=== PATIENT | male | born 1970 | race Caucasian/White ===

== ENCOUNTER 2020-07-23 10:48 | Inpatient (IN) | payer SELFPAY ==
[2020-07-23] VITALS (45 sets, daily range): BP systolic 98–137; BP diastolic 55–120; PULSE 71–118; RESP 10–27; TEMP 35.6–36.7; O2SAT 90–100
--- NOTE | 2020-07-23 10:45 | RT.EKG_ITS ---
APPROVED REPORT Exam: Resting ECG Patient Location: E HR:85 bpm ECG Measurements Heart Rate 85 AXIS OR 164 P 19 QRSd 88 QRS 4 QT 376 T 24 QTc 448 Conclusion Sinus rhythm...normal P axis, V-rate 60- 99 Low voltage, precordial leads...precordial leads <1.0mV
--- NOTE | 2020-07-23 11:12 | DI.CT_ITS ---
EXAM: CT CHEST PE CTA CLINICAL HISTORY: known PE, got TPA 2 weeks ago, syncope/SOB now TECHNIQUE: COMPARISON: No exams were available for comparison FINDINGS: CT angiography of the chest was performed with intravenous infusion of 100 cc of Omnipaque 350. Imag es obtained through the upper abdomen show unremarkable appearance of visualized portions of liver, s pleen, pancreas, and adrenals. No mediastinal or hilar adenopathy. Lungs are clear. No pleural effusion. There are pulmonary emboli in left pulmonary artery and lobar, segmental, and subsegmental branches o n left. No gross evidence of right ventricular strain. Main pulmonary artery is about 37 millimeter s in diameter, compared to thoracic aorta 35 millimeters in diameter. This may be an acute or chroni c finding. IMPRESSION: Left-sided pulmonary emboli as described above, no gross evidence right heart strain. RADIATION DOSE DELIVERED: Total DLP
--- NOTE | 2020-07-23 11:14 | W.ED.GENAD ---
Discharge Plan Disposition Patient Disposition: [facility] INPATIENT Condition: Good Discharge Details Chief Complaint: SOB Clinical Impression: Pulmonary embolism, Near syncope Primary Care Provider: Unknown,Unknown ED Provider: Pelon Diaz Home Meds and New Rx's Prescriptions: No Action warfarin [Coumadin] 5 mg Tablet 5 mg PO DAILY RF: 0 furosemide [Lasix] 20 mg Tablet 20 mg PO QAM PRNRF: 0 duloxetine 60 mg Capsule,Delayed Release(Dr/Ec) 60 mg PO DAILY RF: 0 Medical Decision Making 59-year-old male with a past medical history of recent nephrectomy secondary to renal cell carcinoma stage I, with subsequent pulmonary embolism requiring TPA 2.5 weeks ago in [place] at his home hospital, who presents today for evaluation of shortness of breath and near syncope. Patient is currently visiting from [place], he states over the last few days he has been doing a notable amount of walking, they while out walking he was doing what he would describe as his normal amounts when he got extremely lightheaded, short of breath, felt like he needed to pass out. He did not syncopized, however contrary to the normal situations he was not able to catch his breath even with rest, and came to the ER for further evaluation. He denies any chest pain, pleuritic chest pain, nausea vomiting diarrhea numbness or tingling. He denies any headache, tearing or ripping sensation in his chest or other complaint otherwise. He does take Coumadin for his PE, and states that he has not missed any doses. He denies any other complaints modifying factors at this time. He denies any fever or chills. He denies any exposure to anyone known with coronavirus. Physical exam demonstrates clear lung sounds, trace pitting edema in the lower extremities, minimal calf tenderness, bedside ultrasound is technically challenging secondary to body habitus, however I was able to get a very decent ventricle visualization, and there does not appear to be any gross evidence of right ventricular strain or distention. Trace pericardial effusion versus fat pad is notable. At this time differential includes mild dehydration causing his symptoms, however obviously out of notable concern is the potential for cardiac strain or worsening clot burden secondary to his PE. I do feel that repeat CTA imaging is indicated to evaluate for change in clot burden, we will gently rehydrate with a small 500 cc bolus as his mucous membranes are notably dry, and he is tachycardic. We will monitor closely and reassess. 12:49 PM Patient's laboratory work-up is returned, no white count, no bandemia or left shift. INR is 2.2, electrolytes and renal function stable. Troponin and proBNP are both within normal limits. On reassessment the patient is stable. CT scan results do demonstrate evidence of multiple left pulmonary emboli, however no evidence of significant heart strain as discussed with virtual radiology, repeat discussion with Dr. Villegas also elicits the response of no evidence of significant heart strain. At this time with the patient's symptomatology, known history of PE, I do feel that he would benefit from continued overnight observation, echo in the morning, and monitoring. We will contact the hospitalist. 1:31 PM Discussed the case with , he agrees with the assessment and plan. The patient will be admitted to [facility] with telemetry. I have extensively reviewed the treatment plan with the patient. I have addressed all patient concerns at this time. I have also discussed the plan with the admitting physician and they agree with the current assessment and plan and have agreed to assume responsibility for the patient. All parties demonstrate verbal understanding and agreement with our assessment and plan at this time. EKG at 11: 00 Sinus rhythm, rate 85, intervals normal, inverted T waves noted in V1, no significant ST elevations or depressions. No evidence of notable cardiac strain. FINDINGS: Pulmonary arteries: Multiple left pulmonary emboli: Filling defect in branch to the left upper lobe and branches to the left lower lobe. Aorta: No aneurysm of the aorta. No dissection of the aorta. Lungs: Unremarkable. No consolidation. No masses. Pleural space: Unremarkable. No pneumothorax. No pleural effusion. Heart: Right ventricular dysfunction . Lymph nodes: Unremarkable. No enlarged lymph nodes. Bones/joints: Unremarkable. No acute fracture. Soft tissues: Unremarkable. IMPRESSION: 1. Multiple left pulmonary emboli: Filling defect in branch to the left upper lobe and branches to the left lower lobe. 2. Right ventricular dysfunction . 3. No aneurysm of the aorta. 4. No dissection of the aorta. Thank you for allowing us to participate in the care of your patient. Dictated and Authenticated by: Liss Alvarez MD 07/23/2020 12:27 PM Eastern Time ([place] & [place]) HPI General Date/Time Provider Initiated Documentation: 07/23/20 10:51. HPI Narrative: 59-year-old male with a past medical history of recent nephrectomy secondary to renal cell carcinoma stage I, with subsequent pulmonary embolism requiring TPA 2.5 weeks ago in [place] at his home hospital, who presents today for evaluation of shortness of breath and near syncope. Patient is currently visiting from [place], he states over the last few days he has been doing a notable amount of walking, they while out walking he was doing what he would describe as his normal amounts when he got extremely lightheaded, short of breath, felt like he needed to pass out. He did not syncopized, however contrary to the normal situations he was not able to catch his breath even with rest, and came to the ER for further evaluation. He denies any chest pain, pleuritic chest pain, nausea vomiting diarrhea numbness or tingling. He denies any headache, tearing or ripping sensation in his chest or other complaint otherwise. He does take Coumadin for his PE, and states that he has not missed any doses. He denies any other complaints modifying factors at this time. He denies any fever or chills. He denies any exposure to anyone known with coronavirus. Related Data Home Medications Medication Instructions Recorded Confirmed duloxetine 60 mg PO DAILY 07/23/20 07/23/20 furosemide [Lasix] 20 mg PO QAM PRN 07/23/20 07/23/20 warfarin [Coumadin] 5 mg PO DAILY 07/23/20 07/23/20 Allergies Allergy/AdvReac Type Severity Reaction Status Date / Time morphine AdvReac Other (See Unverified 07/23/20 11:00 Comment) General Stated Complaint: SOB TAYLOR: 2 Review of Systems All systems reviewed & are unremarkable except as noted in HPI and below PFSH Medical History Anemia Arthritis Bursitis of left shoulder Obesity Pulmonary embolism Renal cell cancer Surgical History H/O bone graft History of appendectomy History of nephrectomy, left Social History Smoking/Tobacco Use Status: Former Tobacco Use Alcohol Intake: current Alcohol Intake frequency: holidays/special occasions only Drug use: Occasionally Substance use type: marijuana Do you feel safe at home: Yes Do you feel safe in your relationship?: Yes Exam Narrative Exam Narrative: 1.Const: Well-nourished, Well-developed, appearing stated age, obese 2.Eyes: PERRL, no conjunctival injection, and symmetrical lids. 3.ENT: Atraumatic external nose and ears. Moist MM. Neck: Symmetric, trachea midline, No thyromegaly. 4.CVS: +S1/S2, No murmurs or gallops. Peripheral pulses 2+ and equal in all extremities. Brisk capillary refill in all extremities. 5.RESP: Unlabored respiratory effort. Clear to auscultation bilaterally. No wheezes rales or rhonchi 6.GI: Soft, Nontender/Nondistended, No hepatosplenomegaly. No guarding or rebound. 7.MSK: Normocephalic/Atraumatic, Extremities w/o deformity or ttp No cyanosis or clubbing, Normal movement of all extremities, no significant pitting edema except for trace pretibial bilaterally. Minimal bilateral calf tenderness. 8.Skin: Warm, Dry. No rashes or lesions. 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 Sensation grossly intact, no focal neurologic deficits. 10.Psych: (AAO) x3. Appropriate mood and affect Course Vital Signs Vital signs: Vital Signs Temperature 36.5 C 07/23/20 10:55 Pulse 118 H 07/23/20 10:55 Respiratory Rate 07/23/20 10:55 Blood Pressure 137/102 H 07/23/20 10:55 Pulse Oximetry 97 07/23/20 10:55 Temperature 36.5 C 07/23/20 10:55 Temperature Source Skin 07/23/20 10:55 Pulse 118 H 07/23/20 10:55 Respiratory Rate 07/23/20 10:55 Respiratory Effort 07/23/20 11:00 Blood Pressure 137/102 H 07/23/20 10:55 Blood Pressure Position Sitting 07/23/20 10:55 Pulse Oximetry 97 07/23/20 10:55 Oxygen Delivery Method Room Air 07/23/20 10:55 Oxygen Flow Rate 0 07/23/20 10:55
[2020-07-23] MEDS: Normal Saline 500 ML IV (11:16)
[2020-07-23 11:21] LABS: Abs Immature Grans 0.03 10^3/uL (0.0-0.06); Absolute Basophil Count 0.06 10^3/uL (0.0-0.2); Absolute Eosinophil Count 0.19 10^3/uL (0.0-0.7); Absolute Lymphocyte Count 2.16 10^3/uL (1.2-3.4); Absolute Neutrophil Count 5.24 10^3/uL (1.2-6.7); Basophils % 0.7; Eosinophils % 2.3; HCT 36.4 % (40.0-50.0); HGB 11.1 g/dL (13.5-17.5); Immature Grans % 0.4; Lymphocytes % 26.4; MCH 24.5 pg (27.0-33.0); MCHC 30.5 % (32.0-36.0); MCV 80.4 fL (80-95); MPV 8.8 fL (8.0-11.0); Monocytes % 6.1; Neutrophils % 64.1; Nucleated RBC 0 %; Platelet Count 217 10^3/uL (130-400); RBC 4.53 10^6/uL (4.36-5.78); RDW 16.6 % (11.8-14.1); RDW-SD 48.4 fL; WBC 8.18 10^3/uL (4.4-10.8)
[2020-07-23 11:39] LABS: INR 2.2 (0.9-1.1); PTT Activated 48.6 sec (21.0-31.4); Prothrombin Time 21.9 sec (9.3-11.0)
[2020-07-23 11:41] LABS: ALT 37 U/L (16-63); AST 21 U/L (15-37); Albumin 3.1 g/dL (3.4-5.0); Alkaline Phosphatase 107 U/L (46-116); Anion Gap 8.5 mmol/L (3-11); BUN 23 mg/dL (7-18); Bilirubin, Total 0.4 mg/dL (0.2-1.0); CO2 24.5 mmol/L (21.0-32.0); CREATININE 1.44 mg/dL (0.70-1.30); Calcium 9.2 mg/dL (8.5-10.1); Chloride 102 mmol/L (98-107); Estimated GFR 51.93 (mL/min/1.73m2); Glucose 92 mg/dL (74-106); NT-proBNP 47 pg/mL (<300); Potassium 4.4 mmol/L (3.5-5.1); Sodium 135 mmol/L (136-145); Total Protein 7.1 g/dL (6.4-8.2)
[2020-07-23 11:42] LABS: Troponin I < 0.05 ng/mL (<0.06)
[2020-07-23] MEDS: Omnipaque 350 MG/ML 100 ML BTL IJ (11:59)
--- NOTE | 2020-07-23 12:02 | NUR.NOTE ---
assumed care of pt. armband removed and new armband with correct birthday applied. pt transported to CT
--- NOTE | 2020-07-23 12:27 | DI.VRAD_ITS ---
Addendum created by Liss Alvarez MD on 07/23/2020 12:32:52 PM EDT: THIS REPORT CONTAINS FINDINGS THAT MAY BE CRITICAL TO PATIENT CARE. The findings were verbally communicated via telephone conference with JASPAL MATHEWS at 12:32 PM EDT on 07/23/2020. The findings were acknowledged and understood. Initial report created on 07/23/2020 12:27:06 PM EDT: PROCEDURE INFORMATION: Exam: CT Angiography Chest With Contrast Exam date and time: 07/23/2020 12:06 PM Age: 49 years old Clinical indication: Shortness of breath TECHNIQUE: Imaging protocol: Computed tomographic angiography of the chest with intravenous contrast. 3D rendering (Not supervised by radiologist): MIP and/or 3D reconstructed images were created by the technologist. Contrast material: [id number]; Contrast volume: 100 ml; Contrast route: INTRAVENOUS (IV); COMPARISON: No relevant prior studies available. FINDINGS: Pulmonary arteries: Multiple left pulmonary emboli: Filling defect in branch to the left upper lobe and branches to the left lower lobe. Aorta: No aneurysm of the aorta. No dissection of the aorta. Lungs: Unremarkable. No consolidation. No masses. Pleural space: Unremarkable. No pneumothorax. No pleural effusion. Heart: Right ventricular dysfunction . Lymph nodes: Unremarkable. No enlarged lymph nodes. Bones/joints: Unremarkable. No acute fracture. Soft tissues: Unremarkable. IMPRESSION: 1. Multiple left pulmonary emboli: Filling defect in branch to the left upper lobe and branches to the left lower lobe. 2. Right ventricular dysfunction . 3. No aneurysm of the aorta. 4. No dissection of the aorta. Dictated and Authenticated by: Liss Alvarez MD. Ordering:SHANTEL Bird MD
--- NOTE | 2020-07-23 13:33 | NUR.NOTE ---
lunch tray ordered for pt. IVF continued
--- NOTE | 2020-07-23 13:47 | HPE_ITS ---
Date of service: 07/23/20 Time of Service: 13:47 Assessment and Plan Assessment and plan (1) Pulmonary embolism: Status: Chronic Assessment and plan: Begin heparin drip while adjusting his warfarin dose to achieve a higher therapeutic INR between 2.5 and 3.0. Will discuss with his providers at [facility] in [facility] what the recommendations for long-term anticoagulation. Patient may need to be discharged on long-term Lovenox therapy rather than continuing on the warfarin. Will obtain an echocardiogram in the morning to evaluate for RV dysfunction. I did a [id number] ultrasound with limited imaging and did not see any signs of overt right heart failure. Qualifiers: Pulmonary embolism type: multiple subsegmental (without acute cor pulmonale) Qualified Code(s): I26.94 - Multiple subsegmental pulmonary emboli without acute cor pulmonale History of Present Illness History of Present Illness Chief Complaint: Dyspnea and dizziness Narrative: 49-year-old male with a past medical history of renal cell carcinoma status post left nephrectomy in January 2020 was recently diagnosed with pulmonary emboli when he was admitted to his local hospital in [facility] for acute dyspnea and near syncope. Patient was treated with Lovenox and bridged over to warfarin. INR reportedly has been therapeutic at 3.0 as of last week. He currently is taking warfarin 5 mg nightly. He is no longer on Lovenox therapy. Patient is here in [place] visiting family members and had been doing well walking up to a mile per day without significant dyspnea or chest discomfort or dizziness. Today while out walking with his sister he got very short of breath and dizzy and felt like he was going to pass out but did not lose consciousness. Evaluation in the emergency department per Dr. Valdivia normal vital signs with no hypotension or tachycardia or hypoxemia. Work-up included a CTA of his chest and routine labs and EKG. CTA of the chest demonstrated pulmonary emboli in the left pulmonary artery and lobar segmental and subsegmental branches on the left but no evidence of right ventricular strain. Main pulmonary artery is dilated at 37 mm compared to his thoracic aortic diameter 35 mm. Filling defects included branches in the left upper lobe and branches the left lower lobe. Virtual radiologist read it as showing right ventricular dysfunction however Dr. Mcgill said there is no evidence for right ventricular strain. His CBC on admission was unremarkable except for a mild anemia with a hemoglobin 11.1 g. Coagulation studies demonstrated an INR of 2.2 and a PTT of 48.6. CMP demonstrated renal insufficiency with a BUN of 23 and a creatinine 1.44 and troponin levels were less than 0.05?2 sets and his proBNP was normal at 47. I discussed the case with Dr. Diaz and recommend that the patient be started on heparin drip per PE protocol until we can get his INR therapeutic. Goal for his INR is between 2.5 and 3.0. I will discuss his case further with his providers in [facility] as the patient may require indefinite treatment with Lovenox rather than going back on warfarin. Because of his size, his BMI is 50.8 kg/m?, he is not a candidate for D.O.A.C. Dr. Diaz seem to think that the patient was given thrombolytic when he first presented with his PE to half weeks ago but when I talked this over with the patient the history is less clear that he received any thrombolytic treatment. Furthermore per discussion with the patient he states he was given the vaccine for COVID-19. As the patient has just recently presented to [place] from [place] COVID 19 swab has been obtained and the patient be treated as a person of interest until the COVID-19 swab comes back negative. He is admitted overnight for systemic heparinization until we can achieve an INR level that is on the high end of therapeutic. Upon review of his medications it sounds like he decreased his warfarin dose to 2.5 mg x 1 night last week when he did not hear back from his primary care provider regarding instructions on dosing after he got an INR of 3.0. Review of Systems All systems reviewed & are unremarkable except as noted in HPI and below Constitutional Constitutional: Denies chills and Denies fever(s) Cardiovascular Cardiovascular: Denies chest pain, Denies chest pain with activity, Denies syncope (dizziness w/ feeling of faintness but no actual syncope), Reports lightheadedness and Reports dyspnea on exertion Respiratory Respiratory: Denies chest congestion, Denies cough, Denies pain on inspiration and Reports dyspnea on exertion Gastrointestinal Gastrointestinal: Denies abdominal pain, Denies melena, Denies hematochezia, Reports heartburn, Denies nausea and Denies vomiting Genitourinary Genitourinary: Reports system reviewed and no additional complaints, except as documented Neurologic Neurologic: Denies syncope (dizziness w/ feeling of faintness but no actual syncope) [facility] Medical History (Updated 07/23/20 @ 18:58 by Buck Naranjo) Anemia Arthritis Bursitis of left shoulder Obesity Pulmonary embolism (~06/2020) Renal cell cancer Surgical History (Updated 07/23/20 @ 18:53 by Buck Naranjo) H/O bone graft to repair right hip fracture History of appendectomy (~2017) History of nephrectomy, left (01/29/20) to treat renal cell carcinoma Social History Smoking/Tobacco Use Status: Former Tobacco Use Alcohol Intake: current Alcohol Intake frequency: holidays/special occasions only Drug use: Occasionally Substance use type: marijuana Do you feel safe at home: Yes Do you feel safe in your relationship?: Yes Meds Home Medications and Allergies Home Medications Medication Instructions Recorded Confirmed Type duloxetine 60 mg PO DAILY 07/23/20 07/23/20 History furosemide [Lasix] 20 mg PO QAM PRN 07/23/20 07/23/20 History warfarin [Coumadin] 5 mg PO DAILY 07/23/20 07/23/20 History Allergies Allergy/AdvReac Type Severity Reaction Status Date / Time morphine AdvReac Other (See Unverified 07/23/20 11:00 Comment) Exam Narrative Exam Narrative: Middle-age male who is morbidly obese. He is alert and oriented person place time circumstance. Skin is nondiaphoretic. He is in no acute respiratory distress. He is able to talk in full paragraphs. HEENT is unremarkable. Neck is supple no JVD normal carotid pulses. Lungs are clear to auscultation. Heart regular rate and rhythm without murmur rub or gallop. Abdomen is obese soft nontender NABS no palpable masses no bruits. Lower extremities with 1+ pitting edema bilaterally. No calf tenderness. Normal pedal pulses Neuro exam grossly intact no focal motor or sensory deficits. No focal cranial nerve abnormalities. Results Labs Result diagrams: 07/23/20 11:08 07/23/20 11:08 Labs: Laboratory Results - last 24 hr 07/23/20 07/23/20 07/23/20 11:08 11:08 11:08 WBC 8.18 RBC 4.53 Hgb 11.1 L Hct 36.4 L MCV 80.4 MCH 24.5 L MCHC 30.5 L RDW 16.6 H Plt Count 217 MPV 8.8 Immature Gran % 0.4 Neutrophils % 64.1 Lymphocytes % 26.4 Monocytes % 6.1 Eosinophils % 2.3 Basophils % 0.7 Nucleated RBC % 0 Absolute Neutrophils 5.24 Absolute Lymphocytes 2.16 Absolute Monocytes 0.50 Absolute Eosinophils 0.19 Absolute Basophils 0.06 PT 21.9 H INR 2.2 H APTT 48.6 H Sodium 135 L Potassium 4.4 Chloride 102 Carbon Dioxide 24.5 Anion Gap 8.5 BUN 23 H Creatinine 1.44 H Estimated GFR/1.73 m2 51.93 Glucose 92 Calcium 9.2 Total Bilirubin 0.4 AST 21 ALT 37 Alkaline Phosphatase 107 Troponin I < 0.05 NT-Pro-B Natriuret Pep 47 Total Protein 7.1 Albumin 3.1 L Last Vital Signs Temp 36.7 C 07/23/20 13:29 Pulse 80 07/23/20 13:29 Resp 14 07/23/20 13:29 BP 114/65 07/23/20 13:29 Pulse Ox 99 07/23/20 13:29 COVID-19 Screening Have you,or household,traveled outside [place] in last 14 days?: Yes Had IN PERSON contact w/suspected or confirmed C-19 person: No
[2020-07-23 15:07] LABS: Troponin I < 0.05 ng/mL (<0.06)
[2020-07-23] MEDS: WARFARIN 5 MG, WARFARIN 2.5 MG 7.5 MG PO (20:53)
[2020-07-23 22:13] LABS: PTT Activated > 155.0 sec (21.0-31.4)
[2020-07-24 05:19] LABS: Abs Immature Grans 0.02 10^3/uL (0.0-0.06); Absolute Basophil Count 0.07 10^3/uL (0.0-0.2); Absolute Eosinophil Count 0.26 10^3/uL (0.0-0.7); Absolute Lymphocyte Count 2.59 10^3/uL (1.2-3.4); Absolute Monocyte Count 0.51 10^3/uL (0.1-0.8); Absolute Neutrophil Count 3.67 10^3/uL (1.2-6.7); Eosinophils % 3.7; HCT 34.7 % (40.0-50.0); HGB 10.5 g/dL (13.5-17.5); Immature Grans % 0.3; Lymphocytes % 36.4; MCH 24.4 pg (27.0-33.0); MCHC 30.3 % (32.0-36.0); MCV 80.7 fL (80-95); MPV 8.9 fL (8.0-11.0); Monocytes % 7.2; Neutrophils % 51.4; Nucleated RBC 0 %; Platelet Count 205 10^3/uL (130-400); RDW 16.9 % (11.8-14.1); RDW-SD 49.4 fL; WBC 7.12 10^3/uL (4.4-10.8)
[2020-07-24 05:28] LABS: Anion Gap 7.9 mmol/L (3-11); BUN 19 mg/dL (7-18); CO2 25.1 mmol/L (21.0-32.0); CREATININE 1.22 mg/dL (0.70-1.30); Calcium 8.8 mg/dL (8.5-10.1); Chloride 105 mmol/L (98-107); Glucose 112 mg/dL (74-106); Potassium 4.1 mmol/L (3.5-5.1); Sodium 138 mmol/L (136-145)
[2020-07-24 05:39] LABS: INR 2.3 (0.9-1.1); Prothrombin Time 22.3 sec (9.3-11.0)
[2020-07-24 06:03] LABS: PTT Activated 76.1 sec (21.0-31.4)
[2020-07-24] MEDS: DULoxetine 30 MG CAP 60 MG PO (08:45)
[2020-07-24 08:46] VITALS: BP 113/74; PULSE 82; RESP 18; TEMP 36; O2SAT 97
[2020-07-24] MEDS: Docusate Sodium 100 MG CAP PO (08:58)
[2020-07-24] MEDS: Pantoprazole 20 MG TABCR PO (09:03)
[2020-07-24 12:14] VITALS: BP 105/67; PULSE 71; RESP 18; TEMP 36; O2SAT 96
[2020-07-24 14:12] LABS: COVID-19 RT-PCR UVMMC Result Negative (Negative)
--- NOTE | 2020-07-24 14:59 | PGE_ITS ---
Date of Service Date of service: 07/24/20 Time of Service: 14:59 Assessment and Plan Assessment and plan (1) Pulmonary embolism: Status: Chronic Assessment and plan: Patient presented with new onset exertional dyspnea and near syncope. CTA of his chest demonstrated multiple left pulmonary emboli with filling defects in branches to the left upper lobe and to the left lower l obe. There is no evidence for right ventricular dysfunction on the CT. Echocardiogram has not been done. Venous duplex of his legs was not performed although it was ordered. Patient would like to return home to [facility] with his sister who is leaving this evening. Patient is currently on unfractionated heparin drip with therapeutic levels. His PTT this morning was 76 and this afternoon is 51. He is currently on warfarin but remains subtherapeutic with an INR of 2.3. I had a lengthy discussion with both a enrobing machine operator as well as a gravity prospecting operator helper from the [facility] since I could not reach anybody at [facility] nor could I reach the patient's primary care provider Juve Siegel at the [facility]. I did speak with the patient's home health nurse Andre at [phone] who provided the numbers for the [facility] which are [phone] and also [phone]. I left messages with a [facility] to call me back. I spoke w/ Dr. Carla Wheeler, enrobing machine operator, and Dr. Cristobal Meng, gravity prospecting operator helper, both from [facility]. They are in agreement that the patient should remain on therapeutic lovenox injections at 1 mg/kg SC Q12h given the patient's renal cell carcinoma, morbid obesity, his possible recurrence of PE despite warfarin at therapeutic levels (INR 2.2 on this admission) and concerns for possible varying INR levels in between his admission one month ago when he had saddle block embolus. Dr. Meng recommended checking LMWH levels 4h after his 4th dose of enoxaparin. The patient wants to leave tonight to return to [place], [place] as his sister has to be back in [place] for an appointment tomorrow. I am going to stop his UFH now and give him his evening dose of enoxaparin 180 mg SC in one hour then have him follow up with Juve Siegel in the [facility] and the anticoagulation clinic at [facility] Qualifiers: Pulmonary embolism type: multiple subsegmental (without acute cor pulmonale) Qualified Code(s): I26.94 - Multiple subsegmental pulmonary emboli without acute cor pulmonale Subjective Subjective Patient reports: no new complaints and feels better; denies shortness of breath Interval history since last seen: Patient denies any dyspnea or dizziness. Exam Narrative Exam Narrative: Morbidly obese middle-aged male in no distress. He is alert and oriented person place time circumstance. Lungs are clear to auscultation. Heart is regular rate and rhythm. Objective Last Vital Signs Temp 36 C L 07/24/20 12:14 Pulse 71 07/24/20 12:14 Resp 18 07/24/20 12:14 BP 105/67 07/24/20 12:14 Pulse Ox 96 07/24/20 12:14 Laboratory Results - last 24 hr 07/23/20 07/23/20 07/23/20 13:40 14:35 20:30 WBC RBC Hgb Hct MCV MCH MCHC RDW Plt Count MPV Immature Gran % Neutrophils % Lymphocytes % Monocytes % Eosinophils % Basophils % Nucleated RBC % Absolute Neutrophils Absolute Lymphocytes Absolute Monocytes Absolute Eosinophils Absolute Basophils PT INR APTT > 155.0 H* D Sodium Potassium Chloride Carbon Dioxide Anion Gap BUN Creatinine Estimated GFR/1.73 m2 Glucose Calcium Troponin I < 0.05 COVID-19 PCR Negative Nasopharyn COVID-19 PCR Not Applicable Ref Test Perform Site [facility] 07/24/20 07/24/20 07/24/20 05:10 05:10 05:10 WBC 7.12 RBC 4.30 L Hgb 10.5 L Hct 34.7 L MCV 80.7 MCH 24.4 L MCHC 30.3 L RDW 16.9 H Plt Count 205 MPV 8.9 Immature Gran % 0.3 Neutrophils % 51.4 Lymphocytes % 36.4 Monocytes % 7.2 Eosinophils % 3.7 Basophils % 1.0 Nucleated RBC % 0 Absolute Neutrophils 3.67 Absolute Lymphocytes 2.59 Absolute Monocytes 0.51 Absolute Eosinophils 0.26 Absolute Basophils 0.07 PT INR APTT 76.1 H D Sodium 138 Potassium 4.1 Chloride 105 Carbon Dioxide 25.1 Anion Gap 7.9 BUN 19 H Creatinine 1.22 Estimated GFR/1.73 m2 >= 60.00 Glucose 112 H Calcium 8.8 Troponin I COVID-19 PCR Nasopharyn COVID-19 PCR Ref Test Perform Site 07/24/20 07/24/20 05:10 13:20 WBC RBC Hgb Hct MCV MCH MCHC RDW Plt Count MPV Immature Gran % Neutrophils % Lymphocytes % Monocytes % Eosinophils % Basophils % Nucleated RBC % Absolute Neutrophils Absolute Lymphocytes Absolute Monocytes Absolute Eosinophils Absolute Basophils PT 22.3 H INR 2.3 H APTT 51.0 H D Sodium Potassium Chloride Carbon Dioxide Anion Gap BUN Creatinine Estimated GFR/1.73 m2 Glucose Calcium Troponin I COVID-19 PCR Nasopharyn COVID-19 PCR Ref Test Perform Site
[2020-07-24] MEDS: Enoxaparin 30 MG/0.3 ML SYR SC (15:35)
--- NOTE | 2020-07-24 16:16 | PDOC.CMIN ---
- If Service Date Differs Date of service: 07/24/20 Time of Service: 16:17 Care Management Initial Assess REASON FOR HOSPITALIZATION:: PE, near syncope PAST MEDICAL HISTORY/PAST SURGICAL HISTORY:: Medical History. Anemia. Arthritis. Bursitis of left shoulder. Obesity. Pulmonary embolism (~06/2020). Renal cell cancer. Surgical History. H/O bone graft. to repair right hip fracture. History of appendectomy (~2017). History of nephrectomy, left (01/29/20). to treat renal cell carcinoma PREVIOUS FUNCTIONAL STATUS/SOCIAL/FAMILY SUPPORTS:: Cesar lives in [place], [place]. He is in [place] visiting family. He is independent at baseline, per report. CM unable to obtain additional information d/t him being on Covid precautions. CURRENT FUNCTIONAL STATUS:: CM was unable to meet with Cesar because he is a PUI under precautions awaiting his Covid test results. He is from a Covid '[place]' zone, which will keep him under precautions regardless of his test results at this time. Per report, spoke with the pantograph machine set up operator and vine pruner at [facility] regarding his care. He will restart Cesar on Lovenox prior to discharge. Per report, Cesar would like to be discharged and return to [place] where he will follow up with his PCP. CM will continue to follow. ADVANCE DIRECTIVES:: None on file. Has patient been provided with info about the portal/API?: No Did the patient sign up for the portal?: No CODE STATUS:: Full Code INSURANCE COVERAGE / FINANCIAL ISSUES:: [employer] CURRENT HOME/COMMUNITY SERVICES/EQUIPMENT:: No current services or equipment. PRIMARY CARE PHYSICIAN:: Not local, PCP in [place], [place]. POTENTIAL DISCHARGE NEEDS:: Evaluations for further needs, follow up appointments. PATIENT/FAMILY EDUCATION NEEDS:: Review discharge instructions regarding activity levels and medications, discussion of self care needs and goals of care. ANTICIPATED BARRIERS TO DISCHARGE:: None identified. TRANSPORTATION:: via private vehicle with family. PLAN:: Anticipate Cesar will return home when medically ready. He will be driven home via private vehicle by family. He will follow up with his PCP and discharge plan of care. CM will continue to follow.
--- NOTE | 2020-07-24 17:29 | W.PM.DS.N ---
Date of service: 07/24/20 Time of Service: 17:29 DS: Diagnosis Discharge Diagnosis (1) Pulmonary embolism: Status: Chronic Asessment and Plan: Discontinue warfarin. Continue Lovenox at 180 mg subcutaneously every 12 hours. Get a follow-up low molecular weight heparin level 4 hours after fourth dose. Follow-up with your PCP in the next week. Request referral to hematology to manage your anticoagulation. Discharge Plan Disposition Patient Disposition: HOME Condition: Good Discharge Details Reason For Visit: PE, NEAR SYNCOPE Admit Date/Time: 07/23/20 13:31 Admit Provider: Buck Naranjo Attending Provider: Buck Naranjo Primary Care Provider: Unknown,Unknown Hospital Course Hospital Course: 49-year-old male with history of renal cell carcinoma status post left nephrectomy about 6 months ago in January 2020 performed at [facility] in [facility]. Patient had a massive saddle block pulmonary embolus June 25, 2020 treated with thrombolytic therapy and transitioned over to Lovenox and warfarin. Patient is here in [place] visiting his family when he developed acute exertional dyspnea and associated with near syncopal dizziness. Patient was brought to emergency department where he underwent a CTA of his chest that demonstrated left upper lobe and left lower lobe pulmonary emboli. Patient was started on heparin drip. His INR admission was low therapeutic at 2.2. Warfarin was increased to 7.5 mg nightly. The next day after admission I attempted to try to reach out to his primary care provider in [facility] but was unable to get through to the clinic. I did talk over his case with his visiting nurse Andre who provide me phone numbers to call the patient's PCP however I was able to get through and left messages for his PCP to call me back. I subsequently discussed this case with the rib puller and health administration teacher at the [facility]. They both concurred that the patient should be taken off warfarin and treated with Lovenox at 1 mg/kg subcutaneously every 12 hours and the health administration teacher recommended checking low molecular weight heparin levels 4 hours after his fourth dose. Patient's heparin drip was discontinued on the afternoon of July 24, 2020 and an hour later he was given his first dose of Lovenox 180 mg subcutaneously. Patient be discharged home with prescriptions for Lovenox 60 mg / 0.6 mL's with instruction to take 3 injections twice a day 180 mg subcutaneously q12h. He is also given a prescription to get a low molecular weight heparin level to be drawn 4 hours after his fourth dose which would be late morning or early afternoon on July 26, 2020. Patient is advised to follow-up with his primary care provider Juve Siegel N.P. next week and he is advised to request a referral to a health administration teacher to manage his anticoagulation. Home Meds and New Rx's Prescriptions: New pantoprazole [Protonix] 20 mg Tablet,Delayed Release (Dr/Ec) 20 mg PO DAILY@0730 Qty: 3 RF: 0 enoxaparin 60 mg/0.6 mL syringe 180 mg subcut Q12H Qty: 60 RF: 0 Discontinued warfarin [Coumadin] 5 mg Tablet 5 mg PO DAILY RF: 0 No Action furosemide [Lasix] 20 mg Tablet 20 mg PO QAM PRNRF: 0 duloxetine 60 mg Capsule,Delayed Release(Dr/Ec) 60 mg PO DAILY RF: 0 Discharge Instructions Instructions: Pulmonary Embolism (DC) Additional Instructions: Get a lab drawn low molecular weight heparin level taken 4 hours after fourth dose of enoxaparin. Your first dose of enoxaparin was given here in the hospital this afternoon. Follow-up with your primary care provider Juve Siegel in the next week. Ask for referral to health administration teacher to manage your anticoagulation. Activity:: Activity as Tolerated Equipment/Supplies:: No Equipment Needed Diet:: Normal Diet Discharge Orders Discharge Orders: Discharge Order (Routine); Ordered 07/24/20 Ordered By: Buck Naranjo Discharge Data Discharge Date/Time-TO BE ENTERED AT DEPARTURE: 07/24/20 17:30 DS: Summary Status at Discharge Functional status at discharge: independent ambulation Overall status at discharge: patient is back to baseline Mental Status: mental status grossly normal Speech and Movement: speech and movement normal Mood: congruent mood Affect: normal affect Time Spent with Patient providing and/or coordinating discharge services: Greater than 30 minutes Specific discharge activities: Multiple calls to PCPs office, calls to pulmonary and hematology at [facility] Exam Narrative Exam Narrative: Morbidly obese middle-aged male in no distress. He is alert and oriented person place time circumstance. Lungs are clear to auscultation. Heart is regular rate and rhythm. Psych Mental Status: mental status grossly normal Speech and Movement: speech and movement normal Mood: congruent mood Affect: normal affect DS: Data Vitals/I&O Vitals and I&O: Vital Signs Temperature 36 C L 07/24/20 12:14 Temperature Source Temporal Artery Scan 07/24/20 12:14 Pulse 71 07/24/20 12:14 Pulse Rhythm Regular 07/24/20 08:52 Pulse 88 07/23/20 15:02 Respiratory Rate 18 07/24/20 12:14 Respiratory Effort 07/24/20 08:52 Respiratory Depth Normal 07/24/20 08:52 Respiratory Pattern Normal 07/24/20 08:52 Blood Pressure 105/67 07/24/20 12:14 Blood Pressure Mean 72 07/23/20 15:02 Blood Pressure Position Sitting 07/23/20 10:55 Pulse Oximetry 96 07/24/20 12:14 Oxygen Delivery Method Room Air 07/24/20 12:14 Oxygen Flow Rate 0 07/24/20 12:14 Pain Level 0 07/24/20 12:14 Comment 07/23/20 15:58 Intake & Output 07/23/20 07/24/20 07/24/20 23:59 11:59 23:59 Intake Total 1009.7 / 1019.7 349.083 / 743.133 394.05 / 743.133 Output Total 1000 / 1000 1000 / 1000 Balance 9.7 / 19.7 -650.917 / -256.867 394.05 / -256.867 Weight 173.726 kg 173.7 kg Intake: IV 649.7 / 659.7 99.083 / 193.133 94.05 / 193.133 Oral 360 / 360 250 / 550 300 / 550 Output: Urine 1000 / 1000 1000 / 1000 Other: Urine Color Pale Pale Yellow Yellow Urine Appearance Clear Clear Data Completed and Pending Labs on day of discharge: Labs from last 24 hours 07/24/20 07/24/20 07/24/20 13:20 05:10 05:10 WBC 7.12 RBC 4.30 L Hgb 10.5 L Hct 34.7 L MCV 80.7 MCH 24.4 L MCHC 30.3 L RDW 16.9 H Plt Count 205 MPV 8.9 Immature Gran % 0.3 Neutrophils % 51.4 Lymphocytes % 36.4 Monocytes % 7.2 Eosinophils % 3.7 Basophils % 1.0 Nucleated RBC % 0 Absolute Neutrophils 3.67 Absolute Lymphocytes 2.59 Absolute Monocytes 0.51 Absolute Eosinophils 0.26 Absolute Basophils 0.07 PT 22.3 H INR 2.3 H APTT 51.0 H D Sodium Potassium Chloride Carbon Dioxide Anion Gap BUN Creatinine Estimated GFR/1.73 m2 Glucose Calcium COVID-19 PCR Nasopharyn COVID-19 PCR Ref Test Perform Site 07/24/20 07/24/20 07/23/20 05:10 05:10 20:30 WBC RBC Hgb Hct MCV MCH MCHC RDW Plt Count MPV Immature Gran % Neutrophils % Lymphocytes % Monocytes % Eosinophils % Basophils % Nucleated RBC % Absolute Neutrophils Absolute Lymphocytes Absolute Monocytes Absolute Eosinophils Absolute Basophils PT INR APTT 76.1 H D > 155.0 H* D Sodium 138 Potassium 4.1 Chloride 105 Carbon Dioxide 25.1 Anion Gap 7.9 BUN 19 H Creatinine 1.22 Estimated GFR/1.73 m2 >= 60.00 Glucose 112 H Calcium 8.8 COVID-19 PCR Nasopharyn COVID-19 PCR Ref Test Perform Site 07/23/20 13:40 WBC RBC Hgb Hct MCV MCH MCHC RDW Plt Count MPV Immature Gran % Neutrophils % Lymphocytes % Monocytes % Eosinophils % Basophils % Nucleated RBC % Absolute Neutrophils Absolute Lymphocytes Absolute Monocytes Absolute Eosinophils Absolute Basophils PT INR APTT Sodium Potassium Chloride Carbon Dioxide Anion Gap BUN Creatinine Estimated GFR/1.73 m2 Glucose Calcium COVID-19 PCR Negative Nasopharyn COVID-19 PCR Not Applicable Ref Test Perform Site [facility] Medical History (Updated 07/23/20 @ 18:58 by Buck Naranjo) Anemia Arthritis Bursitis of left shoulder Obesity Pulmonary embolism (~06/2020) Renal cell cancer Surgical History (Updated 07/23/20 @ 18:53 by Buck Naranjo) H/O bone graft to repair right hip fracture History of appendectomy (~2017) History of nephrectomy, left (01/29/20) to treat renal cell carcinoma Social History Smoking/Tobacco Use Status: Former Tobacco Use Alcohol Intake: current Alcohol Intake frequency: holidays/special occasions only Drug use: Occasionally Substance use type: marijuana Do you feel safe at home: Yes Do you feel safe in your relationship?: Yes
== END 2020-07-24 17:30 | disposition home or self-care (01) | DRG 176 ==
LOC: ER 13:35 → MS 15:05
PROVIDERS: Internal Medicine; Admitting Provider Internal Medicine; Emergency Provider Student in an Organized Health Care Education/Training Program; Visit Provider Internal Medicine
DX: I26.94 Multiple subsegmental thrombotic pulmonary emboli without acute cor pulmonale (principal); Z68.43 Body mass index [BMI] 50.0-59.9, adult; Z90.5 Acquired absence of kidney; Z11.59 Encounter for screening for other viral diseases; D64.9 Anemia, unspecified; Z85.528 Personal history of other malignant neoplasm of kidney; E66.01 Morbid (severe) obesity due to excess calories; Z79.01 Long term (current) use of anticoagulants
CPT/HCPCS: 36415; 71275; 80048; 80053; 93005; 96360; 99220; 99226; 99239; 99285; U0003; 83880; 84484; 85025; 85610; 85730; 93010; G0378; J1650; J3490